=== PATIENT | male | born 1985 | race Caucasian/White ===

== ENCOUNTER 2018-04-21 14:44 | Inpatient (IN) | payer OTHER ==
[2018-04-21 16:41] VITALS: BMI 26.4
--- NOTE | 2018-04-21 19:33 | HP ---
CIWA Score - CIWA Score Nausea/Vomitin-No Nausea/No Vomiting Muscle Tremors: 2 Anxiety: 3 Agitation: 2 Paroxysmal Sweats: 3 Orientation: 1-Uncertain about Date (no distress) Tacttile Disturbances: 1-Very Mild Itch/Numbness Auditory Disturbances: 0-None Visual Disturbances: 0-None Headache: 0-None Present CIWA-Ar Total Score: 12 Admission ROS BHS - HPI Chief Complaint: benzo and alcohol withdrawal symptoms Allergies/Adverse Reactions: Allergies Allergy/AdvReac Type Severity Reaction Status Date / Time No Known Allergies Allergy Verified 04/21/18 16:56 History of Present Illness: 32 yo male with hx of nicotine, xanax, cocaine, heroin and alcohol dependence is here seeking detox for benzo and alcohol. MMTP : Aditya Rodriguez on methadone 65 mg, last medicated today, dose pending verification. Hx Hep C and anxiety. Denies suicidal / homicidal ideation or hx suicide attempt. Denies hx of blackouts, seizures or OD. Longest period of sobriety three months. Last detox six months ago at [facility]. Exam Limitations: No Limitations - Ebola screening Have you traveled outside of the country in the last 21 days: No (N) Have you had contact with anyone from an Ebola affected area: No Have you been sick,other than usual withdrawal symptoms: No Do you have a fever: No - Review of Systems Constitutional: Chills, Changes in sleep, Unintentional Wgt. Loss EENT: reports: Other (uses glasses) Respiratory: reports: No Symptoms reported Cardiac: reports: No Symptoms Reported GI: reports: Poor Fluid Intake : reports: No Symptoms Reported Musculoskeletal: reports: Back Pain, Other (bilateral foot pain "walking all day ") Integumentary: reports: No Symptoms Reported Neuro: reports: No Symptoms reported Endocrine: reports: Increased Thirst Hematology: reports: No Symptoms Reported Psychiatric: reports: Orientated x3, Anxious Other Systems: Reviewed and Negative Patient History - Patient Medical History Hx Anemia: No Hx Asthma: No Hx Chronic Obstructive Pulmonary Disease (COPD): No Hx Cancer: No Hx Cardiac Disorders: No Hx Congestive Heart Failure: No Hx Hypertension: No Hx Hypercholesterolemia: No Hx Pacemaker: No HX Cerebrovascular Accident: No Hx Seizures: No Hx Dementia: No Hx Diabetes: No Hx Gastrointestinal Disorders: Yes (Hx GERD) Hx Liver Disease: Yes (Hep C and treated ) Hx Genitourinary Disorders: No Hx Sexually Transmitted Disorders: No Hx Renal Disease (ESRD): No Hx Thyroid Disease: No Hx Human Immunodeficiency Virus (HIV): No (last tested three weeks ago, reports neg results ) Hx Hepatitis C: Yes (treated with Harv[place] ) Hx Depression: Yes Hx Suicide Attempt: No Hx Bipolar Disorder: No Hx Schizophrenia: No - Patient Surgical History Past Surgical History: No - PPD History Previous Implant?: Yes Documented Results: Negative w/o proof Implanted On Prior R Admission?: No PPD to be Administered?: Yes - Smoking Cessation Smoking history: Current every day smoker Have you smoked in the past 12 months: Yes Aproximately how many cigarettes per day: 10 Hx Chewing Tobacco Use: No Initiated information on smoking cessation: Yes 'Breaking Loose' booklet given: 04/21/18 - Substance & Tx. History Hx Alcohol Use: Yes Hx Substance Use: Yes Substance Use Type: Alcohol, Cocaine, Heroin, Tranquilizers Hx Substance Use Treatment: Yes ([facility] six months ago ) - Substances Abused Alprazolam (Xanax) Route: Oral Frequency: Daily Amount used: 10-20mg Age of first use: 14 Date of Last Use: 04/21/18 Cocaine Route: Injection Frequency: Daily Amount used: 8 bags Age of first use: 13 Date of Last Use: 04/20/18 Heroin Route: Injection Frequency: Daily Amount used: 10 bags Age of first use: 24 Date of Last Use: 04/20/18 Alcohol Route: Oral Frequency: Daily Amount used: 5 24 oz cans/ 1pint rum Age of first use: 13 Date of Last Use: 04/21/18 Family Disease History - Family Disease History Family History: Unable to Obtain Admission Physical Exam S - Vital Signs Vital Signs: Vital Signs - 24 hr 04/21/18 16:39 Temperature 97.8 F Pulse Rate 58 L Respiratory 18 Rate Blood Pressure 107/60 - Physical General Appearance: Yes: No Apparent Distress, Nourished, Appropriately Dressed , Irritable, Sweating HEENTM: Yes: EOMI, Hearing grossly Normal, Normal ENT Inspection, Normocephalic , Normal Voice, RADHA, Pharynx Normal, Tm's normal Respiratory: Yes: Chest Non-Tender, Lungs Clear, Normal Breath Sounds, No Respiratory Distress, No Accessory Muscle Use Neck: Yes: No masses,lesions,Nodules, Trachea in good position Breast: Yes: Breast Exam Deferred Cardiology: Yes: Regular Rhythm, Regular Rate Abdominal: Yes: Normal Bowel Sounds, Non Tender, Flat, Soft Genitourinary: Yes: Within Normal Limits Back: Yes: Normal Inspection Musculoskeletal: Yes: full range of Motion, Gait Steady, Pelvis Stable Extremities: Yes: Normal Capillary Refill, Normal Inspection, Normal Range of Motion, Non-Tender 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: 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: 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, Fully Oriented, Alert, Motor Strength 5/5, Normal Mood/Affect, Normal Response Integumentary: Yes: Normal Color, Warm, Diaphoresis Lymphatic: Yes: Within Normal Limits - Diagnostic (1) Nicotine dependence Current Visit: Yes Status: Acute Qualifiers: Nicotine product type: cigarettes (2) Cocaine dependence Current Visit: Yes Status: Acute Qualifiers: Substance use status: uncomplicated Qualified Code(s): F14.20 - Cocaine dependence, uncomplicated (3) Alcohol dependence with withdrawal Current Visit: Yes Status: Acute Qualifiers: Complication of substance-induced condition: uncomplicated Qualified Code(s ): F10.230 - Alcohol dependence with withdrawal, uncomplicated (4) Sedative, hypnotic or anxiolytic dependence with withdrawal, unspecified Current Visit: Yes Status: Acute (5) Opioid dependence on agonist therapy Current Visit: Yes Status: Acute Comment: MMTP : Aditya Rodriguez on methadone 65 mg, last medicated today, dose pending verification. Cleared for Admission [facility] - Detox or Rehab [facility] Level of Care: Medically Managed Detox Regimen/Protocol: Librium [facility] Breath Alcohol Content Breath Alcohol Content: 0 Urine Drug Screen - Results Drug Screen Negative: No Urine Drug Screen Results: MILDRED-Cocaine, OPI-Opiates, BZO-Benzodiazepines, MTD- Methadone
[2018-04-21] MEDS ORDERED: P-EPHED 60MG/TRIPROLIDI 2.5MG TABLET PO PRN (19:40)
[2018-04-21] MEDS ORDERED: MAGNESIUM CITRATE 300 ML BOTTLE PO PRN (19:40)
[2018-04-21] MEDS ORDERED: MAG HYDROX/AL HYDROX/SIMETH 30 ML UNIT-DOSE CUP PO PRN (19:40)
[2018-04-21] MEDS ORDERED: LOPERAMIDE HCL 2 MG CAPSULE PO PRN (19:40)
[2018-04-21] MEDS ORDERED: IBUPROFEN 400 MG TABLET (FP) PO PRN (19:40)
[2018-04-21] MEDS ORDERED: guaiFENesin/D-METHORPHAN HB 10 ML UNIT-DOSE CUPS PO PRN (19:40)
[2018-04-21] MEDS ORDERED: diazePAM 5 MG TABLET PO ONE (19:40)
[2018-04-21] MEDS ORDERED: NICOTINE POLACRILEX 2 MG GUM BC PRN (19:40)
[2018-04-21] MEDS ORDERED: MENTHOL/PHENOL 1 EACH UD MM PRN (19:40)
[2018-04-21] MEDS ORDERED: MAGNESIUM HYDROX 2400MG/30ML ORAL SUSPENSION 30 ML CUP PO PRN (19:40)
[2018-04-21] MEDS: diazePAM 5 MG TABLET PO SCH (23:10)
[2018-04-21] MEDS: THIAMINE HCL 100 MG TABLET (FP) PO SCH (23:10)
[2018-04-22 01:46] LABS: URINE APPEARANCE CLOUDY; URINE BILIRUBIN NEGATIVE (<2.0 mg/dL); URINE COLOR DKYELLOW; URINE GLUCOSE (UA) NEGATIVE (NEGATIVE); URINE KETONE NEGATIVE (NEGATIVE); URINE LEUK ESTERASE NEGATIVE (NEGATIVE); URINE NITRITE NEGATIVE (NEGATIVE); URINE PROTEIN NEGATIVE (NEGATIVE)
[2018-04-22] MEDS: diazePAM 5 MG TABLET PO SCH ×3 (06:13→21:59)
[2018-04-22] MEDS ORDERED: METHADONE HCL 10 MG TABLET PO ONE (08:22)
[2018-04-22] MEDS: diazePAM 5 MG TABLET PO PRN ×2 (08:29→17:30)
[2018-04-22] MEDS ORDERED: METHADONE 40 MG, METHADONE 20 MG, METHADONE 5 MG PO ONE (08:35)
[2018-04-22] MEDS ORDERED: METHADONE HCL 5 MG TABLET ONE (08:43)
[2018-04-22] MEDS ORDERED: METHADONE HCL 10 MG TABLET ONE (08:43)
[2018-04-22] MEDS ORDERED: METHADONE HCL 40 MG DISPERSABLE TABLET ONE (08:44)
[2018-04-22 10:06] LABS: HEMATOCRIT 38.3 % (35.4-49); MCH 30.2 pg (25.7-33.7); MEAN PLT VOLUME 8.8 fl (7.5-11.1); PLATELET COUNT 152 K/MM3 (134-434); RBC 4.31 M/mm3 (4.00-5.60); RDW 14.3 % (11.9-15.9)
[2018-04-22 10:18] LABS: CHLORIDE 105 mmol/L (98-107); POTASSIUM 4.5 mmol/L (3.5-5.1); SODIUM 142 mmol/L (136-145)
[2018-04-22] MEDS: NICOTINE 14 MG/24 HOURS TOPICAL PATCH TD SCH (10:19)
[2018-04-22] MEDS: PRENATAL VITAMINS W/ FOLIC ACID TABLET (FP) PO SCH (10:19)
[2018-04-22 10:39] LABS: ALBUMIN 3.4 g/dl (3.4-5.0); ALK PHOS 89 U/L (45-117); BILIRUBIN,TOTAL 0.3 mg/dL (0.2-1.0); BLOOD UREA NITROGEN 17 mg/dL (7-18); CALCIUM 8.5 mg/dL (8.5-10.1); CO2 31 mmol/L (21-32); GLUCOSE,RANDOM 74 mg/dL (74-106); SGOT/AST 13 U/L (15-37); SGPT/ALT 21 U/L (12-78); TOT PROT 6.2 g/dl (6.4-8.2)
--- NOTE | 2018-04-22 13:06 | PN ---
S CIWA - CIWA Score Nausea/Vomitin-No Nausea/No Vomiting Muscle Tremors: 3 Anxiety: 3 Agitation: 1-Slight > Activity Paroxysmal Sweats: 3 Orientation: 0-Oriented Tacttile Disturbances: 2-Mild Itch/Numbness/Burn Auditory Disturbances: 2-Mild Harshness/Frighten Visual Disturbances: 0-None Headache: 0-None Present CIWA-Ar Total Score: 14 BHS Progress Note (SOAP) Subjective: Anxious, Sweating, Tremors. Objective: PATIENT A & O X 2 (UNCERTAIN ABOUT CURRENT DAY / DATE). PATIENT OBSERVED AMBULATING ON UNIT. NO ACUTE DISTRESS. 04/22/18 13:07 Vital Signs Temperature 97.5 F L 04/22/18 10:29 Pulse Rate 75 04/22/18 10:29 Respiratory Rate 18 04/22/18 10:29 Blood Pressure 101/71 04/22/18 10:29 O2 Sat by Pulse Oximetry (%) Laboratory Tests 04/21/18 04/22/18 04/22/18 01:30 08:00 08:00 WBC 8.0 RBC 4.31 Hgb 13.0 Hct 38.3 MCV 89.0 MCH 30.2 MCHC 34.0 RDW 14.3 Plt Count 152 MPV 8.8 Sodium 142 Potassium 4.5 Chloride 105 Carbon Dioxide 31 Anion Gap No Result Required. BUN 17 Creatinine 1.0 Creat Clearance w eGFR > 60 Random Glucose 74 Calcium 8.5 Total Bilirubin 0.3 AST 13 L ALT 21 Alkaline Phosphatase 89 Total Protein 6.2 L Albumin 3.4 Urine Color Dkyellow Urine Appearance Cloudy Urine pH 5.0 Ur Specific [place] 1.018 Urine Protein Negative Urine Glucose (UA) Negative Urine Ketones Negative Urine Blood Negative Urine Nitrite Negative Urine Bilirubin Negative Urine Urobilinogen 2.0 Ur Leukocyte Esterase Negative RPR Titer 04/22/18 08:00 WBC RBC Hgb Hct MCV MCH MCHC RDW Plt Count MPV Sodium Potassium Chloride Carbon Dioxide Anion Gap BUN Creatinine Creat Clearance w eGFR Random Glucose Calcium Total Bilirubin AST ALT Alkaline Phosphatase Total Protein Albumin Urine Color Urine Appearance Urine pH Ur Specific [place] Urine Protein Urine Glucose (UA) Urine Ketones Urine Blood Urine Nitrite Urine Bilirubin Urine Urobilinogen Ur Leukocyte Esterase RPR Titer Nonreactive LABS NOTED. Assessment: 04/22/18 13:08 WITHDRAWAL SYMPTOMS. Plan: CONTINUE DETOX.
--- NOTE | 2018-04-22 14:15 | CONSULT ---
[facility] Psychiatric Consult - Data Date of interview: 04/22/18 Admission source: [facility] Identifying data: Patient is a 32 year old single male, without kids, unemployed , and currently homeless. This is patient's first admission to detox at [facility]. Pt admitted to for alcohol, cocaine and opiate dependence. Substance Abuse History: Smoking Cessation. Smoking history: Current every day smoker. Have you smoked in the past 12 months: Yes. Aproximately how many cigarettes per day: 10. Hx Chewing Tobacco Use: No. Initiated information on smoking cessation: Yes. 'Breaking Loose' booklet given: 04/21/18. - Substance & Tx. History. Hx Alcohol Use: Yes. Hx Substance Use: Yes. Substance Use Type : Alcohol, Cocaine, Heroin, Tranquilizers. Hx Substance Use Treatment: Yes ( [facility] six months ago ). - Substances Abused. Alprazolam (Xanax). Route : Oral. Frequency: Daily. Amount used: 10-20mg. Age of first use: 14. Date of Last Use: 04/21/18. Cocaine. Route: Injection. Frequency: Daily. Amount used: 8 bags. Age of first use: 13. Date of Last Use: 04/20/18. Heroin. Route: Injection. Frequency: Daily. Amount used: 10 bags. Age of first use: 24. Date of Last Use: 04/20/18. Alcohol. Route: Oral. Frequency: Daily. Amount used: 5 24 oz cans/ 1pint rum. Age of first use: 13. Date of Last Use: 04/21/18 Medical History: GERD, Hep C (treated) Psychiatric History: Pt. denies h/o psychiatric hospitalization, outpatient care , and suicide attempt. Pt. is enrolled at the [facility] methadone program. Pt. is on Methadone maintanence of 85mg daily. Physical/Sexual Abuse/Trauma History: Denies. Mental Status Exam - Mental Status Exam Alert and Oriented to: Time, Place, Person Cognitive Function: Good Patient Appearance: Well Groomed Mood: Withdrawn Affect: Mood Congruent Patient Behavior: Fatigued, Guarded Speech Pattern: Slurred (Pt. presents as a fatigued and sleepy) Voice Loudness: Moderately Soft/Quiet Thought Process: Goal Oriented Thought Disorder: Not Present Hallucinations: Denies Suicidal Ideation: Denies Homicidal Ideation: Denies Insight/Judgement: Poor Sleep: Fair Appetite: Fair Muscle strength/Tone: Normal Gait/Station: Other (Did not observe patient's gait.) Psychiatric Findings - Problem List ([place] 1, 2,3) (1) Substance induced mood disorder Current Visit: Yes Status: Acute (2) Alcohol dependence with withdrawal Current Visit: Yes Status: Acute Qualifiers: Complication of substance-induced condition: uncomplicated Qualified Code(s ): F10.230 - Alcohol dependence with withdrawal, uncomplicated (3) Cocaine dependence Current Visit: Yes Status: Acute Qualifiers: Substance use status: uncomplicated Qualified Code(s): F14.20 - Cocaine dependence, uncomplicated (4) Nicotine dependence Current Visit: Yes Status: Acute Qualifiers: Nicotine product type: cigarettes Substance use status: uncomplicated Qualified Code(s): F17.210 - Nicotine dependence, cigarettes, uncomplicated (5) Sedative, hypnotic or anxiolytic dependence with withdrawal, unspecified Current Visit: Yes Status: Acute (6) Opioid dependence on agonist therapy Current Visit: Yes Status: Chronic Comment: MMTP : Aditya Rodriguez on methadone 65 mg, last medicated today, dose pending verification. - Initial Treatment Plan Initial Treatment Plan: Psychoeducation provided. Detoxification in progress. Observation.
--- NOTE | 2018-04-22 14:33 | EKG ---
Test Reason : Blood Pressure : / mmHG Vent. Rate : 046 BPM Atrial Rate : 046 BPM P-R Int : 144 ms QRS Dur : 108 ms QT Int : 450 ms P-R-T Axes : 012 047 061 degrees QTc Int : 393 ms SINUS BRADYCARDIA OTHERWISE NORMAL ECG WHEN COMPARED WITH ECG OF 21-APR-2018 20:39, SINUS RHYTHM HAS REPLACED JUNCTIONAL RHYTHM Confirmed by ROMEL CHUNG MD ([id number]) on 04/22/2018 2:32:46 PM Referred By: Confirmed By:ROMEL CHUNG MD
--- NOTE | 2018-04-22 14:35 | EKG ---
Test Reason : Blood Pressure : / mmHG Vent. Rate : 046 BPM Atrial Rate : 046 BPM P-R Int : 000 ms QRS Dur : 114 ms QT Int : 490 ms P-R-T Axes : 000 041 051 degrees QTc Int : 428 ms POOR DATA QUALITY, INTERPRETATION MAY BE ADVERSELY AFFECTED MARKED SINUS BRADYCARDIA INCOMPLETE RIGHT BUNDLE BRANCH BLOCK ABNORMAL ECG NO PREVIOUS ECGS AVAILABLE Confirmed by ROMEL CHUNG MD ([id number]) on 04/22/2018 2:35:23 PM Referred By: Confirmed By:ROMEL CHUNG MD
[2018-04-22] MEDS: ACETAMINOPHEN 325 MG TABLET (FP) PO PRN (20:00)
--- NOTE | 2018-04-22 21:35 | PN ---
[facility] Progress Note Note: Vital Signs - 24 hr 04/22/18 04/22/18 04/22/18 00:23 03:30 05:56 Temperature 98.4 F Pulse Rate 57 L Respiratory 18 18 18 Rate Blood Pressure 108/57 04/22/18 04/22/18 04/22/18 06:30 09:19 09:35 Temperature 97.5 F L 97.5 F L Pulse Rate 75 75 Respiratory 18 18 18 Rate Blood Pressure 101/71 101/71 04/22/18 04/22/18 04/22/18 10:29 13:08 18:37 Temperature 97.5 F L 98.4 F 96.9 F L Pulse Rate 75 60 71 Respiratory 18 16 18 Rate Blood Pressure 101/71 94/58 120/86 04/22/18 21:45 Temperature 102.1 F H Pulse Rate 58 L Respiratory 18 Rate Blood Pressure 111/72 Patient c/o of sore throat and fever A/P Patient AOx3 + pharyngeal erythema, no exudate present no adenopathy no adventitious breath sounds - sore throat Plan: tylenol PRN for fever throat culture peridex rinse BID increase fluids continue to monitor
[2018-04-22] MEDS: THIAMINE HCL 100 MG TABLET (FP) PO SCH (21:58)
[2018-04-22] MEDS: CHLORHEXIDINE GLUCONATE 0.12% 15ML CUP MM SCH (21:59)
[2018-04-23] MEDS ORDERED: METHADONE HCL 5 MG TABLET ONE (04:07)
[2018-04-23] MEDS ORDERED: METHADONE HCL 10 MG TABLET ONE (04:07)
[2018-04-23] MEDS ORDERED: METHADONE HCL 40 MG DISPERSABLE TABLET ONE (04:08)
[2018-04-23] MEDS ORDERED: METHADONE HCL 10 MG TABLET PO SCH (06:00)
[2018-04-23] MEDS: METHADONE 40 MG, METHADONE 20 MG, METHADONE 5 MG PO SCH (06:26)
[2018-04-23] MEDS: PRENATAL VITAMINS W/ FOLIC ACID TABLET (FP) PO SCH (10:05)
[2018-04-23] MEDS: diazePAM 5 MG TABLET PO SCH ×2 (10:05→22:22)
[2018-04-23] MEDS: NICOTINE 14 MG/24 HOURS TOPICAL PATCH TD SCH (10:06)
[2018-04-23] MEDS: CHLORHEXIDINE GLUCONATE 0.12% 15ML CUP MM SCH ×2 (10:08→22:27)
--- NOTE | 2018-04-23 12:07 | PN ---
[facility] CIWA - CIWA Score Nausea/Vomitin-No Nausea/No Vomiting Muscle Tremors: None Anxiety: 4-Mod. Anxious/Guarded Agitation: 3 Paroxysmal Sweats: 2 Orientation: 0-Oriented Tacttile Disturbances: 2-Mild Itch/Numbness/Burn Auditory Disturbances: 0-None Visual Disturbances: 0-None Headache: 0-None Present CIWA-Ar Total Score: 11 BHS Progress Note (SOAP) Subjective: Anxious, Interrupted Sleep, Sweating. Objective: PATIENT A & O X 3, OBSERVED AMBULATING ON UNIT. NO ACUTE DISTRESS. 04/23/18 12:09 Vital Signs Temperature 97.1 F L 04/23/18 09:17 Pulse Rate 76 04/23/18 09:17 Respiratory Rate 17 04/23/18 09:17 Blood Pressure 94/54 04/23/18 09:17 O2 Sat by Pulse Oximetry (%) Laboratory Tests 04/21/18 04/22/18 04/22/18 01:30 08:00 08:00 WBC 8.0 RBC 4.31 Hgb 13.0 Hct 38.3 MCV 89.0 MCH 30.2 MCHC 34.0 RDW 14.3 Plt Count 152 MPV 8.8 Sodium 142 Potassium 4.5 Chloride 105 Carbon Dioxide 31 Anion Gap No Result Required. BUN 17 Creatinine 1.0 Creat Clearance w eGFR > 60 Random Glucose 74 Calcium 8.5 Total Bilirubin 0.3 AST 13 L ALT 21 Alkaline Phosphatase 89 Total Protein 6.2 L Albumin 3.4 Urine Color Dkyellow Urine Appearance Cloudy Urine pH 5.0 Ur Specific [place] 1.018 Urine Protein Negative Urine Glucose (UA) Negative Urine Ketones Negative Urine Blood Negative Urine Nitrite Negative Urine Bilirubin Negative Urine Urobilinogen 2.0 Ur Leukocyte Esterase Negative RPR Titer 04/22/18 08:00 WBC RBC Hgb Hct MCV MCH MCHC RDW Plt Count MPV Sodium Potassium Chloride Carbon Dioxide Anion Gap BUN Creatinine Creat Clearance w eGFR Random Glucose Calcium Total Bilirubin AST ALT Alkaline Phosphatase Total Protein Albumin Urine Color Urine Appearance Urine pH Ur Specific [place] Urine Protein Urine Glucose (UA) Urine Ketones Urine Blood Urine Nitrite Urine Bilirubin Urine Urobilinogen Ur Leukocyte Esterase RPR Titer Nonreactive LABS NOTED. Assessment: 04/23/18 12:09 WITHDRAWAL SYMPTOMS. Plan: CONTINUE DETOX. INCREASE DAILY PO FLUID INTAKE.
[2018-04-23] MEDS: diazePAM 5 MG TABLET PO PRN (15:41)
[2018-04-23] MEDS: ACETAMINOPHEN 325 MG TABLET (FP) PO PRN (15:41)
[2018-04-23] MEDS: THIAMINE HCL 100 MG TABLET (FP) PO SCH (22:22)
[2018-04-23] MEDS: MELATONIN 5 MG TABLETS PO PRN (22:23)
[2018-04-24] MEDS ORDERED: METHADONE HCL 10 MG TABLET ONE (04:25)
[2018-04-24] MEDS ORDERED: METHADONE HCL 5 MG TABLET ONE (04:26)
[2018-04-24] MEDS ORDERED: METHADONE HCL 40 MG DISPERSABLE TABLET ONE (04:26)
[2018-04-24] MEDS: METHADONE 40 MG, METHADONE 20 MG, METHADONE 5 MG PO SCH (05:47)
[2018-04-24] MEDS: PRENATAL VITAMINS W/ FOLIC ACID TABLET (FP) PO SCH (10:06)
[2018-04-24] MEDS: NICOTINE 14 MG/24 HOURS TOPICAL PATCH TD SCH (10:07)
[2018-04-24] MEDS: diazePAM 5 MG TABLET PO SCH ×2 (10:07→22:52)
[2018-04-24] MEDS: CHLORHEXIDINE GLUCONATE 0.12% 15ML CUP MM SCH ×2 (10:07→22:52)
--- NOTE | 2018-04-24 17:56 | PN ---
[facility] Progress Note (SOAP) Subjective: Anxious, Sweating, Fatigue. Objective: PATIENT A & O X 3, OBSERVED AMBULATING ON UNIT. NO ACUTE DISTRESS. 04/24/18 17:56 Vital Signs Temperature 97.6 F 04/24/18 14:36 Pulse Rate 51 L 04/24/18 14:36 Respiratory Rate 19 04/24/18 14:36 Blood Pressure 99/61 04/24/18 14:36 O2 Sat by Pulse Oximetry (%) Laboratory Tests 04/21/18 04/22/18 04/22/18 01:30 08:00 08:00 WBC 8.0 RBC 4.31 Hgb 13.0 Hct 38.3 MCV 89.0 MCH 30.2 MCHC 34.0 RDW 14.3 Plt Count 152 MPV 8.8 Sodium 142 Potassium 4.5 Chloride 105 Carbon Dioxide 31 Anion Gap No Result Required. BUN 17 Creatinine 1.0 Creat Clearance w eGFR > 60 Random Glucose 74 Calcium 8.5 Total Bilirubin 0.3 AST 13 L ALT 21 Alkaline Phosphatase 89 Total Protein 6.2 L Albumin 3.4 Urine Color Dkyellow Urine Appearance Cloudy Urine pH 5.0 Ur Specific [place] 1.018 Urine Protein Negative Urine Glucose (UA) Negative Urine Ketones Negative Urine Blood Negative Urine Nitrite Negative Urine Bilirubin Negative Urine Urobilinogen 2.0 Ur Leukocyte Esterase Negative RPR Titer 04/22/18 08:00 WBC RBC Hgb Hct MCV MCH MCHC RDW Plt Count MPV Sodium Potassium Chloride Carbon Dioxide Anion Gap BUN Creatinine Creat Clearance w eGFR Random Glucose Calcium Total Bilirubin AST ALT Alkaline Phosphatase Total Protein Albumin Urine Color Urine Appearance Urine pH Ur Specific [place] Urine Protein Urine Glucose (UA) Urine Ketones Urine Blood Urine Nitrite Urine Bilirubin Urine Urobilinogen Ur Leukocyte Esterase RPR Titer Nonreactive LABS NOTED. Assessment: 04/24/18 17:56 WITHDRAWAL SYMPTOMS. Plan: CONTINUE DETOX. INCREASE DAILY PO FLUID INTAKE.
[2018-04-24] MEDS: THIAMINE HCL 100 MG TABLET (FP) PO SCH (22:52)
[2018-04-24] MEDS: MELATONIN 5 MG TABLETS PO PRN (23:43)
[2018-04-25] MEDS ORDERED: METHADONE HCL 5 MG TABLET ONE ×2 (05:03→09:19)
[2018-04-25] MEDS ORDERED: METHADONE HCL 10 MG TABLET ONE ×2 (05:03→09:19)
[2018-04-25] MEDS ORDERED: METHADONE HCL 40 MG DISPERSABLE TABLET ONE ×2 (05:04→09:19)
[2018-04-25] MEDS: METHADONE 40 MG, METHADONE 20 MG, METHADONE 5 MG PO SCH (06:56)
[2018-04-25] MEDS ORDERED: METHADONE HCL 10 MG TABLET PO ONE (09:06)
[2018-04-25 09:09] VITALS: BP 103/61; PULSE 40; TEMP 97.4
[2018-04-25] MEDS ORDERED: METHADONE 40 MG, METHADONE 20 MG, METHADONE 5 MG PO ONE (09:15)
[2018-04-25] MEDS ORDERED: diazePAM 5 MG TABLET PO SCH (10:00)
[2018-04-25] MEDS: PRENATAL VITAMINS W/ FOLIC ACID TABLET (FP) PO SCH (10:28)
[2018-04-25] MEDS: NICOTINE 14 MG/24 HOURS TOPICAL PATCH TD SCH (10:28)
[2018-04-25] MEDS: CHLORHEXIDINE GLUCONATE 0.12% 15ML CUP MM SCH (10:28)
--- NOTE | 2018-04-25 15:03 | PN ---
[facility] Progress Note (SOAP) Subjective: pt states he is leaving today- says sore throat is better- but cx came back positive Objective: 04/25/18 15:01 Vital Signs - 24 hr 04/24/18 04/24/18 04/25/18 18:20 22:33 03:30 Temperature 97.9 F 98.5 F Pulse Rate 41 L 48 L Respiratory 16 18 18 Rate Blood Pressure 89/52 92/59 04/25/18 04/25/18 07:36 09:08 Temperature 97.5 F L 97.4 F L Pulse Rate 59 L 40 L Respiratory 18 18 Rate Blood Pressure 92/41 103/61 Laboratory Tests 04/21/18 04/22/18 04/22/18 01:30 08:00 08:00 WBC 8.0 RBC 4.31 Hgb 13.0 Hct 38.3 MCV 89.0 MCH 30.2 MCHC 34.0 RDW 14.3 Plt Count 152 MPV 8.8 Sodium 142 Potassium 4.5 Chloride 105 Carbon Dioxide 31 Anion Gap No Result Required. BUN 17 Creatinine 1.0 Creat Clearance w eGFR > 60 Random Glucose 74 Calcium 8.5 Total Bilirubin 0.3 AST 13 L ALT 21 Alkaline Phosphatase 89 Total Protein 6.2 L Albumin 3.4 Urine Color Dkyellow Urine Appearance Cloudy Urine pH 5.0 Ur Specific [place] 1.018 Urine Protein Negative Urine Glucose (UA) Negative Urine Ketones Negative Urine Blood Negative Urine Nitrite Negative Urine Bilirubin Negative Urine Urobilinogen 2.0 Ur Leukocyte Esterase Negative RPR Titer 04/22/18 08:00 WBC RBC Hgb Hct MCV MCH MCHC RDW Plt Count MPV Sodium Potassium Chloride Carbon Dioxide Anion Gap BUN Creatinine Creat Clearance w eGFR Random Glucose Calcium Total Bilirubin AST ALT Alkaline Phosphatase Total Protein Albumin Urine Color Urine Appearance Urine pH Ur Specific [place] Urine Protein Urine Glucose (UA) Urine Ketones Urine Blood Urine Nitrite Urine Bilirubin Urine Urobilinogen Ur Leukocyte Esterase RPR Titer Nonreactive Microbiology 04/23/18 15:00 Throat Throat Culture - Preliminary Streptococcus Pyogenes Grp A pt states his sore throat is better- no fever Assessment: 04/25/18 15:02 32 yo male with hx of nicotine, xanax, cocaine, heroin and alcohol dependence- completed detox for benzo and alcohol Plan: continue methadone OTP- treamtent for positive cx
--- NOTE | 2018-04-25 15:23 | DS ---
[facility] Detox Discharge Summary Admission Date: 04/21/18 Discharge Date: 04/25/18 - History Present History: Alcohol Dependence, Opioid Dependence, MMTP Pertinent Past History: 32 yo male with hx of nicotine, xanax, cocaine, heroin and alcohol dependence- completed detox for benzo and alcohol. 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 - Physical Exam Results Vital Signs: Vital Signs Temperature 97.4 F L 04/25/18 09:08 Pulse Rate 40 L 04/25/18 09:08 Respiratory Rate 04/25/18 09:08 Blood Pressure 103/61 04/25/18 09:08 O2 Sat by Pulse Oximetry (%) - Treatment Hospital Course: Detox Protocol Followed, Detoxed Safely, Responded well, Discharged Condition Good - Medication Discharge Medications: Ambulatory Orders Omeprazole Magnesium [Prilosec Otc] 20 mg PO DAILY 04/21/18 traZODone HCL [Desyrel -] 100 mg PO HS 04/21/18 Amoxicillin - [Amoxicillin 500mg Capsule -] 500 mg PO BID #20 capsule 04/25/18 - Diagnosis (1) Streptococcal pharyngitis Status: Acute (2) Alcohol dependence with withdrawal Status: Acute Qualifiers: Complication of substance-induced condition: uncomplicated Qualified Code(s ): F10.230 - Alcohol dependence with withdrawal, uncomplicated (3) Cocaine dependence Status: Acute Qualifiers: Substance use status: uncomplicated Qualified Code(s): F14.20 - Cocaine dependence, uncomplicated (4) Nicotine dependence Status: Acute Qualifiers: Nicotine product type: cigarettes Substance use status: uncomplicated Qualified Code(s): F17.210 - Nicotine dependence, cigarettes, uncomplicated (5) Opioid dependence on agonist therapy Status: Chronic - AMA Did Patient Leave Against Medical Advice: No
== END 2018-04-25 12:06 | disposition other institution (70) | DRG 773 ==
LOC: YASAS 14:44 → Y3N 18:25
PROVIDERS: ADMIT Surgery; ATTEND Surgery
PROC: HZ2ZZZZ Detoxification Services for Substance Abuse Treatment (ICD-10-PCS; principal; 2018-04-21)
DX: F10.230 Alcohol dependence with withdrawal, uncomplicated (principal); F13.230 Sedative, hypnotic or anxiolytic dependence with withdrawal, uncomplicated; F11.20 Opioid dependence, uncomplicated; F14.20 Cocaine dependence, uncomplicated; F17.210 Nicotine dependence, cigarettes, uncomplicated; F19.24 Other psychoactive substance dependence with psychoactive substance-induced mood disorder; J02.0 Streptococcal pharyngitis; B95.0 Streptococcus, group A, as the cause of diseases classified elsewhere; Z86.19 Personal history of other infectious and parasitic diseases; Z87.19 Personal history of other diseases of the digestive system; Z59.0 Homelessness
CPT/HCPCS: 36415; 80053; 81003; 85027; 86593; 87070; 87077; 93005; 93010

== ENCOUNTER 2018-04-25 12:42 | Inpatient (IN) | payer OTHER ==
[2018-04-25 13:11] VITALS: BMI 24.3
--- NOTE | 2018-04-25 13:41 | HP ---
[facility] Rehab Assess/Revision - Admission History Admitted to Rehab from: [facility] Date of Admission to Rehab: 04/25/18 - Vital signs Vital Signs: Vital Signs Period Temp Pulse Resp BP Sys/[place] Pulse Ox Last 24 Hr 97.9 F 56 18 111/70 - Findings Detox History & Physical reviewed: Yes Concur with findings: Yes Inpatient Rehab Admission - Initial Determination Are CD services needed?: Yes Free of communicable disease: Yes Not in need of hospitalization: Yes - Rehab Admission Criteria Previous failed treatment: Yes Poor recovery environment: Yes Comorbidities: Yes Lacks judgement: Yes Patient is meeting Inpatient Rehab admission criteria:: Yes
[2018-04-25] MEDS ORDERED: MAGNESIUM CITRATE 300 ML BOTTLE PO PRN (13:42)
[2018-04-25] MEDS ORDERED: hydrOXYzine PAMOATE 50 MG CAPSULE (FP) PO PRN (13:42)
[2018-04-25] MEDS ORDERED: ACETAMINOPHEN 325 MG TABLET (FP) PO PRN (13:42)
[2018-04-25] MEDS ORDERED: NICOTINE POLACRILEX 2 MG GUM BUC PRN (13:42)
[2018-04-25] MEDS ORDERED: P-EPHED 60MG/TRIPROLIDI 2.5MG TABLET PO PRN (13:42)
[2018-04-25] MEDS ORDERED: LOPERAMIDE HCL 2 MG CAPSULE PO PRN (13:42)
[2018-04-25] MEDS ORDERED: MENTHOL/PHENOL 1 EACH UD MM PRN (13:42)
[2018-04-25] MEDS ORDERED: guaiFENesin/D-METHORPHAN HB 10 ML UNIT-DOSE CUPS PO PRN (13:42)
[2018-04-25] MEDS ORDERED: MAGNESIUM HYDROX 2400MG/30ML ORAL SUSPENSION 30 ML CUP PO PRN (13:42)
--- NOTE | 2018-04-25 13:54 | PN ---
[facility] Progress Note Note: Vital Signs Temperature 97.9 F 04/25/18 13:00 Pulse Rate 56 L 04/25/18 13:00 Respiratory Rate 18 04/25/18 13:00 Blood Pressure 111/70 04/25/18 13:00 O2 Sat by Pulse Oximetry (%) microbiology: mod Strep A preliminary results Patient symptomatic will start Penicillin V 250mg QID, treatment will be adjusted accordingly peridex PRN increase fluids continue to monitor
[2018-04-25] MEDS: PENICILLIN V POTASSIUM 500 MG TABLET PO SCH ×2 (17:28→23:00)
[2018-04-25] MEDS ORDERED: PT OWN MED DRAWER 7, Y5N ONE (20:38)
[2018-04-25] MEDS: CHLORHEXIDINE GLUCONATE 0.12% 15ML CUP MM SCH (22:08)
[2018-04-25] MEDS: THIAMINE HCL 100 MG TABLET (FP) PO SCH (22:08)
[2018-04-25] MEDS: MELATONIN 5 MG TABLETS PO PRN (23:00)
[2018-04-26] MEDS: PENICILLIN V POTASSIUM 500 MG TABLET PO SCH ×3 (06:24→18:00)
--- NOTE | 2018-04-26 06:57 | HP ---
Psychiatrist Admission - Data Date of interview: 04/26/18 Admission source: [facility] Identifying data: This is the first [facility] admission for this 32 years old single male, unemployed with no source of income, homeless Medical History: Significant for GERD and history of treatment for hepatitis C. Patient is on methadone 85 mg/day. Smokes 10 cigarettes daily Psychiatric History: Denies history of previous psychiatric treatment. However, reports feeling depressed and sleeping poorly. Requests to be orderred Trazadone to which he responded well in the past Physical/Sexual Abuse/Trauma History: Denies history of emotional, physical or sexual abuse as well as DV relationship. No service Additional Comment: Reports history of 6 previous misdemeanor arrests. Reports having an active court case on charges of possession of narcotic. Told caption writer that he is scheduled to appear in court on Jun 08. Vital Signs: Vital Signs - 24 hr 04/25/18 04/26/18 04/26/18 13:00 00:30 06:48 Temperature 97.9 F 97.8 F Pulse Rate 56 L 52 L Respiratory 18 16 16 Rate Blood Pressure 111/70 117/59 Allergies/Adverse Reactions: Allergies Allergy/AdvReac Type Severity Reaction Status Date / Time No Known Allergies Allergy Verified 04/25/18 12:57 Date of last physical exam: 04/21/18 Concur with the findings of this exam: Yes - Substance Abuse/Tx History Hx Alcohol Use: Yes Hx Substance Use: Yes (Currently attends [facility]) Substance Use Type: Alcohol (Started drining alcohol at age 13, consumes one pint of rum & 5x 24oz of beer daily. Last drank on 04/21/18), Cocaine (Started using cocaine at age13, consumes 8 bags daily. Last used on 04/20/18), Heroin ( Started using heroin at age 24, consumes 10 bags daily. Last used on 04/20/18), Tranquilizers (Started using xanax at age 14, consumes 10-20 mg daily. Last used on 04/21/18) Hx Substance Use Treatment: Yes (Multiple inpt detox & 5 inpt rehab admissions) Mental Status Exam - Mental Status Exam Alert and Oriented to: Time, Place, Person Cognitive Function: Fair Patient Appearance: Well Groomed Mood: Depressed Affect: Appropriate Patient Behavior: Cooperative Speech Pattern: Clear Voice Loudness: Normal Thought Process: Intact, Goal Oriented Hallucinations: Denies Suicidal Ideation: Denies Homicidal Ideation: Denies Insight/Judgement: Fair Sleep: Poorly Appetite: Fair Muscle strength/Tone: Normal Gait/Station: Normal Psychiatric Findings - Problem List ([place] 1, 2,3) (1) Alcohol dependence Current Visit: Yes Status: Acute (2) Cocaine dependence Current Visit: No Status: Acute Qualifiers: Substance use status: uncomplicated Qualified Code(s): F14.20 - Cocaine dependence, uncomplicated (3) Sedative hypnotic or anxiolytic dependence Current Visit: Yes Status: Acute (4) Opioid dependence on agonist therapy Current Visit: No Status: Chronic Comment: MMTP : Aditya Rodriguez on methadone 65 mg, last medicated today, dose pending verification. (5) Nicotine dependence Current Visit: No Status: Chronic Qualifiers: Nicotine product type: cigarettes Substance use status: uncomplicated Qualified Code(s): F17.210 - Nicotine dependence, cigarettes, uncomplicated (6) Substance induced mood disorder Current Visit: Yes Status: Acute (7) Substance-induced sleep disorder Current Visit: Yes Status: Acute (8) GERD (gastroesophageal reflux disease) Current Visit: Yes Status: Chronic (9) Hepatitis C Current Visit: Yes Status: Resolved - Initial Treatment Plan Initial Treatment Plan: 1) Start Trazadone 100 mg po HS. 2) monitor progress
[2018-04-26] MEDS ORDERED: METHADONE HCL 10 MG TABLET PO SCH (07:45)
[2018-04-26] MEDS: METHADONE 40 MG, METHADONE 20 MG, METHADONE 5 MG PO SCH (08:05)
[2018-04-26] MEDS ORDERED: METHADONE HCL 40 MG DISPERSABLE TABLET ONE (09:04)
[2018-04-26] MEDS ORDERED: METHADONE HCL 10 MG TABLET ONE (09:04)
[2018-04-26] MEDS: PANTOPRAZOLE 20 MG TABLET (FP) PO SCH (09:05)
[2018-04-26] MEDS ORDERED: METHADONE HCL 5 MG TABLET ONE (09:05)
[2018-04-26] MEDS: PRENATAL VITAMINS W/ FOLIC ACID TABLET (FP) PO SCH (09:05)
[2018-04-26] MEDS: NICOTINE 14 MG/24 HOURS TOPICAL PATCH TD SCH (09:06)
[2018-04-26] MEDS: CHLORHEXIDINE GLUCONATE 0.12% 15ML CUP MM SCH ×2 (10:26→22:01)
[2018-04-26] MEDS: MELATONIN 5 MG TABLETS PO PRN (22:00)
[2018-04-26] MEDS: THIAMINE HCL 100 MG TABLET (FP) PO SCH (22:00)
[2018-04-26] MEDS: traZODone HCL 100 MG TABLET (FP) PO SCH (22:00)
[2018-04-27] MEDS ORDERED: METHADONE HCL 5 MG TABLET ONE (03:03)
[2018-04-27] MEDS ORDERED: METHADONE HCL 10 MG TABLET ONE (03:03)
[2018-04-27] MEDS ORDERED: METHADONE HCL 40 MG DISPERSABLE TABLET ONE (03:03)
[2018-04-27] MEDS: PENICILLIN V POTASSIUM 500 MG TABLET PO SCH ×4 (03:29→17:58)
[2018-04-27] MEDS: METHADONE 40 MG, METHADONE 20 MG, METHADONE 5 MG PO SCH (06:44)
[2018-04-27] MEDS: NICOTINE 14 MG/24 HOURS TOPICAL PATCH TD SCH (10:49)
[2018-04-27] MEDS: CHLORHEXIDINE GLUCONATE 0.12% 15ML CUP MM SCH ×2 (10:49→21:48)
[2018-04-27] MEDS: PRENATAL VITAMINS W/ FOLIC ACID TABLET (FP) PO SCH (10:49)
[2018-04-27] MEDS: PANTOPRAZOLE 20 MG TABLET (FP) PO SCH (10:49)
[2018-04-27] MEDS: THIAMINE HCL 100 MG TABLET (FP) PO SCH (21:47)
[2018-04-27] MEDS: MELATONIN 5 MG TABLETS PO PRN (21:47)
[2018-04-27] MEDS: traZODone HCL 100 MG TABLET (FP) PO SCH (21:47)
[2018-04-28] MEDS: PENICILLIN V POTASSIUM 500 MG TABLET PO SCH ×4 (01:09→18:00)
[2018-04-28] MEDS ORDERED: METHADONE HCL 10 MG TABLET ONE (02:48)
[2018-04-28] MEDS ORDERED: METHADONE HCL 40 MG DISPERSABLE TABLET ONE (02:48)
[2018-04-28] MEDS ORDERED: METHADONE HCL 5 MG TABLET ONE (02:49)
[2018-04-28] MEDS ORDERED: PT OWN MED DRAWER 7, Y5N ONE ×3 (06:19→10:29)
[2018-04-28] MEDS: METHADONE 40 MG, METHADONE 20 MG, METHADONE 5 MG PO SCH (06:19)
[2018-04-28] MEDS ORDERED: ACETAMINOPHEN 325 MG TABLET (FP) ONE (10:16)
[2018-04-28] MEDS: CHLORHEXIDINE GLUCONATE 0.12% 15ML CUP MM SCH ×2 (10:18→21:39)
[2018-04-28] MEDS: PANTOPRAZOLE 20 MG TABLET (FP) PO SCH (10:18)
[2018-04-28] MEDS: PRENATAL VITAMINS W/ FOLIC ACID TABLET (FP) PO SCH (10:18)
[2018-04-28] MEDS: NICOTINE 14 MG/24 HOURS TOPICAL PATCH TD SCH (10:18)
[2018-04-28] MEDS: traZODone HCL 100 MG TABLET (FP) PO SCH (21:38)
[2018-04-28] MEDS: THIAMINE HCL 100 MG TABLET (FP) PO SCH (21:38)
[2018-04-28] MEDS: MELATONIN 5 MG TABLETS PO PRN (21:38)
[2018-04-29] MEDS ORDERED: METHADONE HCL 5 MG TABLET ONE (02:38)
[2018-04-29] MEDS ORDERED: METHADONE HCL 10 MG TABLET ONE (02:38)
[2018-04-29] MEDS ORDERED: METHADONE HCL 40 MG DISPERSABLE TABLET ONE (02:38)
[2018-04-29] MEDS: METHADONE 40 MG, METHADONE 20 MG, METHADONE 5 MG PO SCH (06:14)
[2018-04-29] MEDS: CHLORHEXIDINE GLUCONATE 0.12% 15ML CUP MM SCH ×2 (10:07→21:43)
[2018-04-29] MEDS: PANTOPRAZOLE 20 MG TABLET (FP) PO SCH (10:07)
[2018-04-29] MEDS: PRENATAL VITAMINS W/ FOLIC ACID TABLET (FP) PO SCH (10:07)
[2018-04-29] MEDS: NICOTINE 14 MG/24 HOURS TOPICAL PATCH TD SCH (10:07)
--- NOTE | 2018-04-29 10:57 | PN ---
[facility] Progress Note Note: c/o of headache, anxiety and difficulty sleeping, denies visual changes, vertigo or paresthesia, or neck pain Vital Signs Temperature 98.2 F 04/29/18 06:56 Pulse Rate 51 L 04/29/18 06:56 Respiratory Rate 18 04/29/18 06:56 Blood Pressure 93/56 04/29/18 06:56 O2 Sat by Pulse Oximetry (%) AOx3 no distress, anxious skin intact full ROM ambulating in the unit Plan: ibuprofen PRN for headache follow up with psych re: Anxiety increase fluids continue to monitor
[2018-04-29] MEDS: THIAMINE HCL 100 MG TABLET (FP) PO SCH (21:43)
[2018-04-29] MEDS: traZODone HCL 100 MG TABLET (FP) PO SCH (21:43)
[2018-04-29] MEDS: MELATONIN 5 MG TABLETS PO PRN (21:43)
[2018-04-30] MEDS ORDERED: METHADONE HCL 10 MG TABLET ONE (03:57)
[2018-04-30] MEDS ORDERED: METHADONE HCL 40 MG DISPERSABLE TABLET ONE (03:57)
[2018-04-30] MEDS ORDERED: METHADONE HCL 5 MG TABLET ONE (03:57)
[2018-04-30] MEDS: METHADONE 40 MG, METHADONE 20 MG, METHADONE 5 MG PO SCH (06:28)
[2018-04-30] MEDS: CHLORHEXIDINE GLUCONATE 0.12% 15ML CUP MM SCH ×2 (10:01→21:44)
[2018-04-30] MEDS: NICOTINE 14 MG/24 HOURS TOPICAL PATCH TD SCH (10:01)
[2018-04-30] MEDS: PRENATAL VITAMINS W/ FOLIC ACID TABLET (FP) PO SCH (10:02)
[2018-04-30] MEDS: PANTOPRAZOLE 20 MG TABLET (FP) PO SCH (10:02)
[2018-04-30] MEDS ORDERED: PT OWN MED DRAWER 7, Y5N ONE ×2 (18:54→20:09)
[2018-04-30] MEDS: THIAMINE HCL 100 MG TABLET (FP) PO SCH (21:43)
[2018-04-30] MEDS: traZODone HCL 100 MG TABLET (FP) PO SCH (21:43)
[2018-05-01] MEDS ORDERED: METHADONE HCL 40 MG DISPERSABLE TABLET ONE (04:38)
[2018-05-01] MEDS ORDERED: METHADONE HCL 10 MG TABLET ONE (04:38)
[2018-05-01] MEDS ORDERED: METHADONE HCL 5 MG TABLET ONE (04:39)
[2018-05-01] MEDS: METHADONE 40 MG, METHADONE 20 MG, METHADONE 5 MG PO SCH (06:21)
[2018-05-01] MEDS: PANTOPRAZOLE 20 MG TABLET (FP) PO SCH (10:24)
[2018-05-01] MEDS: PRENATAL VITAMINS W/ FOLIC ACID TABLET (FP) PO SCH (10:24)
[2018-05-01] MEDS: NICOTINE 14 MG/24 HOURS TOPICAL PATCH TD SCH (10:24)
[2018-05-01] MEDS: CHLORHEXIDINE GLUCONATE 0.12% 15ML CUP MM SCH ×2 (10:24→21:52)
[2018-05-01] MEDS ORDERED: PT OWN MED DRAWER 7, Y5N ONE ×2 (20:47→21:56)
[2018-05-01] MEDS: traZODone HCL 100 MG TABLET (FP) PO SCH (21:52)
[2018-05-01] MEDS: THIAMINE HCL 100 MG TABLET (FP) PO SCH (21:52)
[2018-05-02] MEDS ORDERED: METHADONE HCL 10 MG TABLET ONE (05:29)
[2018-05-02] MEDS ORDERED: METHADONE HCL 40 MG DISPERSABLE TABLET ONE (05:29)
[2018-05-02] MEDS ORDERED: METHADONE HCL 5 MG TABLET ONE (05:30)
[2018-05-02] MEDS: METHADONE 40 MG, METHADONE 20 MG, METHADONE 5 MG PO SCH (06:10)
[2018-05-02] MEDS: NICOTINE 14 MG/24 HOURS TOPICAL PATCH TD SCH (10:22)
[2018-05-02] MEDS: PANTOPRAZOLE 20 MG TABLET (FP) PO SCH (10:22)
[2018-05-02] MEDS: CHLORHEXIDINE GLUCONATE 0.12% 15ML CUP MM SCH ×2 (10:22→21:53)
[2018-05-02] MEDS: PRENATAL VITAMINS W/ FOLIC ACID TABLET (FP) PO SCH (10:22)
[2018-05-02] MEDS ORDERED: PT OWN MED DRAWER 7, Y5N ONE (19:10)
[2018-05-02] MEDS: THIAMINE HCL 100 MG TABLET (FP) PO SCH (21:53)
[2018-05-02] MEDS: traZODone HCL 100 MG TABLET (FP) PO SCH (21:53)
[2018-05-02] MEDS: MELATONIN 5 MG TABLETS PO PRN (21:54)
[2018-05-03] MEDS ORDERED: METHADONE HCL 10 MG TABLET ONE (02:44)
[2018-05-03] MEDS ORDERED: METHADONE HCL 40 MG DISPERSABLE TABLET ONE (02:44)
[2018-05-03] MEDS ORDERED: METHADONE HCL 5 MG TABLET ONE (02:44)
[2018-05-03] MEDS: METHADONE 40 MG, METHADONE 20 MG, METHADONE 5 MG PO SCH (06:22)
[2018-05-03] MEDS: PRENATAL VITAMINS W/ FOLIC ACID TABLET (FP) PO SCH (10:05)
[2018-05-03] MEDS: CHLORHEXIDINE GLUCONATE 0.12% 15ML CUP MM SCH ×2 (10:05→21:54)
[2018-05-03] MEDS: PANTOPRAZOLE 20 MG TABLET (FP) PO SCH (10:05)
[2018-05-03] MEDS: NICOTINE 14 MG/24 HOURS TOPICAL PATCH TD SCH (10:05)
[2018-05-03] MEDS: MELATONIN 5 MG TABLETS PO PRN (21:53)
[2018-05-03] MEDS: traZODone HCL 100 MG TABLET (FP) PO SCH (21:53)
[2018-05-03] MEDS: THIAMINE HCL 100 MG TABLET (FP) PO SCH (21:53)
[2018-05-03] MEDS ORDERED: PT OWN MED DRAWER 7, Y5N ONE (21:54)
[2018-05-04] MEDS ORDERED: METHADONE HCL 10 MG TABLET ONE (05:34)
[2018-05-04] MEDS ORDERED: METHADONE HCL 40 MG DISPERSABLE TABLET ONE (05:35)
[2018-05-04] MEDS ORDERED: METHADONE HCL 5 MG TABLET ONE (05:35)
[2018-05-04] MEDS: METHADONE 40 MG, METHADONE 20 MG, METHADONE 5 MG PO SCH (06:28)
[2018-05-04] MEDS: NICOTINE 14 MG/24 HOURS TOPICAL PATCH TD SCH (10:35)
[2018-05-04] MEDS: CHLORHEXIDINE GLUCONATE 0.12% 15ML CUP MM SCH ×2 (10:35→21:43)
[2018-05-04] MEDS: PANTOPRAZOLE 20 MG TABLET (FP) PO SCH (10:35)
[2018-05-04] MEDS: PRENATAL VITAMINS W/ FOLIC ACID TABLET (FP) PO SCH (10:35)
[2018-05-04] MEDS ORDERED: PT OWN MED DRAWER 7, Y5N ONE (16:16)
[2018-05-04] MEDS: traZODone HCL 100 MG TABLET (FP) PO SCH (21:42)
[2018-05-04] MEDS: THIAMINE HCL 100 MG TABLET (FP) PO SCH (21:42)
[2018-05-04] MEDS: MELATONIN 5 MG TABLETS PO PRN (21:43)
[2018-05-05] MEDS ORDERED: METHADONE HCL 40 MG DISPERSABLE TABLET ONE (05:33)
[2018-05-05] MEDS ORDERED: METHADONE HCL 10 MG TABLET ONE (05:33)
[2018-05-05] MEDS ORDERED: METHADONE HCL 5 MG TABLET ONE (05:34)
[2018-05-05] MEDS: METHADONE 40 MG, METHADONE 20 MG, METHADONE 5 MG PO SCH (06:26)
[2018-05-05] MEDS ORDERED: PT OWN MED DRAWER 7, Y5N ONE (09:25)
[2018-05-05] MEDS: NICOTINE 14 MG/24 HOURS TOPICAL PATCH TD SCH (11:02)
[2018-05-05] MEDS: PANTOPRAZOLE 20 MG TABLET (FP) PO SCH (11:03)
[2018-05-05] MEDS: PRENATAL VITAMINS W/ FOLIC ACID TABLET (FP) PO SCH (11:03)
[2018-05-05] MEDS: CHLORHEXIDINE GLUCONATE 0.12% 15ML CUP MM SCH ×2 (11:03→21:58)
[2018-05-05] MEDS: THIAMINE HCL 100 MG TABLET (FP) PO SCH (21:57)
[2018-05-05] MEDS: traZODone HCL 100 MG TABLET (FP) PO SCH (21:57)
[2018-05-05] MEDS: MELATONIN 5 MG TABLETS PO PRN (21:57)
[2018-05-05] MEDS: TOLNAFTATE 1% CREAM 15 GM TUBE TP SCH (22:00)
[2018-05-06] MEDS: METHADONE 40 MG, METHADONE 20 MG, METHADONE 5 MG PO SCH (06:31)
[2018-05-06] MEDS ORDERED: METHADONE HCL 5 MG TABLET ONE (06:31)
[2018-05-06] MEDS ORDERED: METHADONE HCL 10 MG TABLET ONE (06:31)
[2018-05-06] MEDS ORDERED: METHADONE HCL 40 MG DISPERSABLE TABLET ONE (06:31)
[2018-05-06] MEDS: NICOTINE 14 MG/24 HOURS TOPICAL PATCH TD SCH (10:44)
[2018-05-06] MEDS: PANTOPRAZOLE 20 MG TABLET (FP) PO SCH (10:45)
[2018-05-06] MEDS: CHLORHEXIDINE GLUCONATE 0.12% 15ML CUP MM SCH ×2 (10:45→21:47)
[2018-05-06] MEDS: PRENATAL VITAMINS W/ FOLIC ACID TABLET (FP) PO SCH (10:45)
[2018-05-06] MEDS: TOLNAFTATE 1% CREAM 15 GM TUBE TP SCH ×2 (10:45→21:48)
[2018-05-06] MEDS: MELATONIN 5 MG TABLETS PO PRN (21:46)
[2018-05-06] MEDS: traZODone HCL 100 MG TABLET (FP) PO SCH (21:46)
[2018-05-06] MEDS: THIAMINE HCL 100 MG TABLET (FP) PO SCH (21:46)
[2018-05-06] MEDS ORDERED: PT OWN MED DRAWER 7, Y5N ONE (21:47)
[2018-05-07] MEDS ORDERED: METHADONE HCL 10 MG TABLET ONE (05:34)
[2018-05-07] MEDS ORDERED: METHADONE HCL 40 MG DISPERSABLE TABLET ONE (05:34)
[2018-05-07] MEDS ORDERED: METHADONE HCL 5 MG TABLET ONE (05:34)
[2018-05-07] MEDS: METHADONE 40 MG, METHADONE 20 MG, METHADONE 5 MG PO SCH (06:32)
[2018-05-07] MEDS: PANTOPRAZOLE 20 MG TABLET (FP) PO SCH (10:29)
[2018-05-07] MEDS: PRENATAL VITAMINS W/ FOLIC ACID TABLET (FP) PO SCH (10:29)
[2018-05-07] MEDS: CHLORHEXIDINE GLUCONATE 0.12% 15ML CUP MM SCH ×2 (10:29→22:00)
[2018-05-07] MEDS: NICOTINE 14 MG/24 HOURS TOPICAL PATCH TD SCH (10:29)
[2018-05-07] MEDS: TOLNAFTATE 1% CREAM 15 GM TUBE TP SCH ×2 (10:30→21:59)
[2018-05-07] MEDS ORDERED: PT OWN MED DRAWER 7, Y5N ONE (10:34)
[2018-05-07] MEDS: traZODone HCL 100 MG TABLET (FP) PO SCH (21:59)
[2018-05-07] MEDS: THIAMINE HCL 100 MG TABLET (FP) PO SCH (21:59)
[2018-05-07] MEDS: MELATONIN 5 MG TABLETS PO PRN (21:59)
[2018-05-08] MEDS ORDERED: METHADONE HCL 10 MG TABLET ONE (03:15)
[2018-05-08] MEDS ORDERED: METHADONE HCL 40 MG DISPERSABLE TABLET ONE (03:15)
[2018-05-08] MEDS ORDERED: METHADONE HCL 5 MG TABLET ONE (03:15)
[2018-05-08] MEDS: METHADONE 40 MG, METHADONE 20 MG, METHADONE 5 MG PO SCH (06:23)
[2018-05-08] MEDS: PANTOPRAZOLE 20 MG TABLET (FP) PO SCH (10:50)
[2018-05-08] MEDS: TOLNAFTATE 1% CREAM 15 GM TUBE TP SCH ×2 (10:50→21:52)
[2018-05-08] MEDS: PRENATAL VITAMINS W/ FOLIC ACID TABLET (FP) PO SCH (10:50)
[2018-05-08] MEDS: CHLORHEXIDINE GLUCONATE 0.12% 15ML CUP MM SCH ×2 (10:51→21:54)
[2018-05-08] MEDS: NICOTINE 14 MG/24 HOURS TOPICAL PATCH TD SCH (10:51)
[2018-05-08] MEDS ORDERED: PT OWN MED DRAWER 7, Y5N ONE (20:58)
[2018-05-08] MEDS: THIAMINE HCL 100 MG TABLET (FP) PO SCH (21:53)
[2018-05-08] MEDS: traZODone HCL 100 MG TABLET (FP) PO SCH (21:53)
[2018-05-08] MEDS: MELATONIN 5 MG TABLETS PO PRN (21:54)
[2018-05-09] MEDS ORDERED: METHADONE HCL 40 MG DISPERSABLE TABLET ONE (05:56)
[2018-05-09] MEDS ORDERED: METHADONE HCL 10 MG TABLET ONE (05:56)
[2018-05-09] MEDS ORDERED: METHADONE HCL 5 MG TABLET ONE (05:56)
[2018-05-09] MEDS: METHADONE 40 MG, METHADONE 20 MG, METHADONE 5 MG PO SCH (05:59)
[2018-05-09] MEDS ORDERED: PT OWN MED DRAWER 7, Y5N ONE ×2 (09:00→20:02)
[2018-05-09] MEDS: PRENATAL VITAMINS W/ FOLIC ACID TABLET (FP) PO SCH (09:58)
[2018-05-09] MEDS: CHLORHEXIDINE GLUCONATE 0.12% 15ML CUP MM SCH ×2 (09:58→21:56)
[2018-05-09] MEDS: NICOTINE 14 MG/24 HOURS TOPICAL PATCH TD SCH (09:58)
[2018-05-09] MEDS: PANTOPRAZOLE 20 MG TABLET (FP) PO SCH (09:58)
[2018-05-09] MEDS: TOLNAFTATE 1% CREAM 15 GM TUBE TP SCH ×2 (10:00→21:55)
[2018-05-09] MEDS: traZODone HCL 100 MG TABLET (FP) PO SCH (21:56)
[2018-05-09] MEDS: THIAMINE HCL 100 MG TABLET (FP) PO SCH (21:56)
[2018-05-09] MEDS: MELATONIN 5 MG TABLETS PO PRN (21:57)
[2018-05-10] MEDS ORDERED: METHADONE HCL 10 MG TABLET ONE (05:31)
[2018-05-10] MEDS ORDERED: METHADONE HCL 40 MG DISPERSABLE TABLET ONE (05:31)
[2018-05-10] MEDS ORDERED: METHADONE HCL 5 MG TABLET ONE (05:31)
[2018-05-10] MEDS: METHADONE 40 MG, METHADONE 20 MG, METHADONE 5 MG PO SCH (06:23)
[2018-05-10] MEDS: PRENATAL VITAMINS W/ FOLIC ACID TABLET (FP) PO SCH (10:54)
[2018-05-10] MEDS: NICOTINE 14 MG/24 HOURS TOPICAL PATCH TD SCH (10:54)
[2018-05-10] MEDS: CHLORHEXIDINE GLUCONATE 0.12% 15ML CUP MM SCH ×2 (10:54→21:52)
[2018-05-10] MEDS: PANTOPRAZOLE 20 MG TABLET (FP) PO SCH (10:54)
[2018-05-10] MEDS: TOLNAFTATE 1% CREAM 15 GM TUBE TP SCH ×2 (10:55→21:51)
[2018-05-10] MEDS: traZODone HCL 100 MG TABLET (FP) PO SCH (21:50)
[2018-05-10] MEDS: THIAMINE HCL 100 MG TABLET (FP) PO SCH (21:50)
[2018-05-10] MEDS: MELATONIN 5 MG TABLETS PO PRN (21:50)
[2018-05-11] MEDS ORDERED: METHADONE HCL 10 MG TABLET ONE (05:23)
[2018-05-11] MEDS ORDERED: METHADONE HCL 40 MG DISPERSABLE TABLET ONE (05:23)
[2018-05-11] MEDS ORDERED: METHADONE HCL 5 MG TABLET ONE (05:23)
[2018-05-11] MEDS: METHADONE 40 MG, METHADONE 20 MG, METHADONE 5 MG PO SCH (06:30)
[2018-05-11] MEDS: PRENATAL VITAMINS W/ FOLIC ACID TABLET (FP) PO SCH (10:20)
[2018-05-11] MEDS: NICOTINE 14 MG/24 HOURS TOPICAL PATCH TD SCH (10:20)
[2018-05-11] MEDS: CHLORHEXIDINE GLUCONATE 0.12% 15ML CUP MM SCH ×2 (10:20→21:53)
[2018-05-11] MEDS: PANTOPRAZOLE 20 MG TABLET (FP) PO SCH (10:21)
[2018-05-11] MEDS: TOLNAFTATE 1% CREAM 15 GM TUBE TP SCH ×2 (10:21→21:53)
--- NOTE | 2018-05-11 15:41 | PN ---
S Progress Note Note: Vital Signs Temperature 97.4 F L 05/11/18 07:02 Pulse Rate 72 05/11/18 07:02 Respiratory Rate 18 05/11/18 07:02 Blood Pressure 127/85 05/11/18 07:02 O2 Sat by Pulse Oximetry (%) c/o of swollen left lymph node. Denies body aches, cough, chills, sore throat. A/P patient Aox3 no distress no pharyngeal erythema mild left cervical posterior adenopathy no adventitious breath sounds Plan: tylenol pRN continue to monitor for worsening symptoms
[2018-05-11] MEDS: MELATONIN 5 MG TABLETS PO PRN (21:53)
[2018-05-11] MEDS: THIAMINE HCL 100 MG TABLET (FP) PO SCH (21:53)
[2018-05-11] MEDS: traZODone HCL 100 MG TABLET (FP) PO SCH (21:53)
[2018-05-12] MEDS ORDERED: METHADONE HCL 5 MG TABLET ONE (02:38)
[2018-05-12] MEDS ORDERED: METHADONE HCL 10 MG TABLET ONE (02:38)
[2018-05-12] MEDS ORDERED: METHADONE HCL 40 MG DISPERSABLE TABLET ONE (02:38)
[2018-05-12] MEDS: METHADONE 40 MG, METHADONE 20 MG, METHADONE 5 MG PO SCH (06:36)
[2018-05-12] MEDS: NICOTINE 14 MG/24 HOURS TOPICAL PATCH TD SCH (11:01)
[2018-05-12] MEDS: CHLORHEXIDINE GLUCONATE 0.12% 15ML CUP MM SCH ×2 (11:01→22:46)
[2018-05-12] MEDS: PRENATAL VITAMINS W/ FOLIC ACID TABLET (FP) PO SCH (11:01)
[2018-05-12] MEDS: PANTOPRAZOLE 20 MG TABLET (FP) PO SCH (11:01)
[2018-05-12] MEDS: TOLNAFTATE 1% CREAM 15 GM TUBE TP SCH ×2 (11:01→22:45)
[2018-05-12] MEDS: THIAMINE HCL 100 MG TABLET (FP) PO SCH (22:45)
[2018-05-12] MEDS: traZODone HCL 100 MG TABLET (FP) PO SCH (22:46)
[2018-05-12] MEDS: MELATONIN 5 MG TABLETS PO PRN (22:47)
[2018-05-13] MEDS ORDERED: METHADONE HCL 10 MG TABLET ONE (02:39)
[2018-05-13] MEDS ORDERED: METHADONE HCL 40 MG DISPERSABLE TABLET ONE (02:39)
[2018-05-13] MEDS ORDERED: METHADONE HCL 5 MG TABLET ONE (02:40)
[2018-05-13] MEDS: METHADONE 40 MG, METHADONE 20 MG, METHADONE 5 MG PO SCH (06:42)
[2018-05-13] MEDS: NICOTINE 14 MG/24 HOURS TOPICAL PATCH TD SCH (10:27)
[2018-05-13] MEDS: CHLORHEXIDINE GLUCONATE 0.12% 15ML CUP MM SCH ×2 (10:27→22:29)
[2018-05-13] MEDS: PANTOPRAZOLE 20 MG TABLET (FP) PO SCH (10:27)
[2018-05-13] MEDS: TOLNAFTATE 1% CREAM 15 GM TUBE TP SCH ×2 (10:27→22:30)
[2018-05-13] MEDS: PRENATAL VITAMINS W/ FOLIC ACID TABLET (FP) PO SCH (10:27)
[2018-05-13] MEDS ORDERED: PT OWN MED DRAWER 7, Y5N ONE (10:37)
[2018-05-13] MEDS: traZODone HCL 100 MG TABLET (FP) PO SCH (22:27)
[2018-05-13] MEDS: THIAMINE HCL 100 MG TABLET (FP) PO SCH (22:27)
[2018-05-13] MEDS: MELATONIN 5 MG TABLETS PO PRN (22:28)
[2018-05-14] MEDS ORDERED: METHADONE HCL 40 MG DISPERSABLE TABLET ONE (05:27)
[2018-05-14] MEDS ORDERED: METHADONE HCL 10 MG TABLET ONE (05:27)
[2018-05-14] MEDS ORDERED: METHADONE HCL 5 MG TABLET ONE (05:27)
[2018-05-14] MEDS: METHADONE 40 MG, METHADONE 20 MG, METHADONE 5 MG PO SCH (06:42)
[2018-05-14] MEDS: PANTOPRAZOLE 20 MG TABLET (FP) PO SCH (10:42)
[2018-05-14] MEDS: PRENATAL VITAMINS W/ FOLIC ACID TABLET (FP) PO SCH (10:42)
[2018-05-14] MEDS: NICOTINE 14 MG/24 HOURS TOPICAL PATCH TD SCH (10:42)
[2018-05-14] MEDS: CHLORHEXIDINE GLUCONATE 0.12% 15ML CUP MM SCH ×2 (10:42→22:33)
[2018-05-14] MEDS: TOLNAFTATE 1% CREAM 15 GM TUBE TP SCH ×2 (10:42→22:05)
[2018-05-14] MEDS: IBUPROFEN 400 MG TABLET (FP) PO PRN (17:01)
[2018-05-14] MEDS ORDERED: PT OWN MED DRAWER 7, Y5N ONE (19:04)
[2018-05-14] MEDS: traZODone HCL 100 MG TABLET (FP) PO SCH (22:06)
[2018-05-14] MEDS: THIAMINE HCL 100 MG TABLET (FP) PO SCH (22:06)
[2018-05-14] MEDS: MELATONIN 5 MG TABLETS PO PRN (22:06)
[2018-05-15] MEDS ORDERED: METHADONE HCL 10 MG TABLET ONE (05:31)
[2018-05-15] MEDS ORDERED: METHADONE HCL 40 MG DISPERSABLE TABLET ONE (05:32)
[2018-05-15] MEDS ORDERED: METHADONE HCL 5 MG TABLET ONE (05:32)
[2018-05-15] MEDS: METHADONE 40 MG, METHADONE 20 MG, METHADONE 5 MG PO SCH (06:26)
[2018-05-15] MEDS: TOLNAFTATE 1% CREAM 15 GM TUBE TP SCH ×2 (09:48→22:18)
[2018-05-15] MEDS: CHLORHEXIDINE GLUCONATE 0.12% 15ML CUP MM SCH ×2 (09:49→22:18)
[2018-05-15] MEDS: NICOTINE 14 MG/24 HOURS TOPICAL PATCH TD SCH (09:49)
[2018-05-15] MEDS: PANTOPRAZOLE 20 MG TABLET (FP) PO SCH (09:49)
[2018-05-15] MEDS ORDERED: PT OWN MED DRAWER 7, Y5N ONE ×2 (09:49→22:18)
[2018-05-15] MEDS: PRENATAL VITAMINS W/ FOLIC ACID TABLET (FP) PO SCH (09:49)
[2018-05-15] MEDS: IBUPROFEN 400 MG TABLET (FP) PO PRN (13:56)
[2018-05-15] MEDS: THIAMINE HCL 100 MG TABLET (FP) PO SCH (22:16)
[2018-05-15] MEDS: traZODone HCL 100 MG TABLET (FP) PO SCH (22:16)
[2018-05-15] MEDS: MELATONIN 5 MG TABLETS PO PRN (22:16)
[2018-05-16] MEDS ORDERED: METHADONE HCL 10 MG TABLET ONE (05:38)
[2018-05-16] MEDS ORDERED: METHADONE HCL 5 MG TABLET ONE (05:38)
[2018-05-16] MEDS ORDERED: METHADONE HCL 40 MG DISPERSABLE TABLET ONE (05:38)
[2018-05-16] MEDS: METHADONE 40 MG, METHADONE 20 MG, METHADONE 5 MG PO SCH (06:30)
[2018-05-16] MEDS: PRENATAL VITAMINS W/ FOLIC ACID TABLET (FP) PO SCH (10:19)
[2018-05-16] MEDS: TOLNAFTATE 1% CREAM 15 GM TUBE TP SCH ×2 (10:20→22:29)
[2018-05-16] MEDS: PANTOPRAZOLE 20 MG TABLET (FP) PO SCH (10:20)
[2018-05-16] MEDS: CHLORHEXIDINE GLUCONATE 0.12% 15ML CUP MM SCH ×2 (10:21→22:28)
[2018-05-16] MEDS: NICOTINE 14 MG/24 HOURS TOPICAL PATCH TD SCH (10:45)
[2018-05-16] MEDS ORDERED: PT OWN MED DRAWER 7, Y5N ONE (20:23)
[2018-05-16] MEDS: traZODone HCL 100 MG TABLET (FP) PO SCH (22:28)
[2018-05-16] MEDS: THIAMINE HCL 100 MG TABLET (FP) PO SCH (22:28)
[2018-05-16] MEDS: MELATONIN 5 MG TABLETS PO PRN (22:30)
[2018-05-17] MEDS ORDERED: METHADONE HCL 40 MG DISPERSABLE TABLET ONE (03:09)
[2018-05-17] MEDS ORDERED: METHADONE HCL 10 MG TABLET ONE (03:09)
[2018-05-17] MEDS ORDERED: METHADONE HCL 5 MG TABLET ONE (03:10)
[2018-05-17] MEDS: METHADONE 40 MG, METHADONE 20 MG, METHADONE 5 MG PO SCH (06:29)
[2018-05-17] MEDS: IBUPROFEN 400 MG TABLET (FP) PO PRN ×2 (06:32→22:01)
[2018-05-17] MEDS ORDERED: PT OWN MED DRAWER 7, Y5N ONE ×3 (08:55→20:05)
[2018-05-17] MEDS: NICOTINE 14 MG/24 HOURS TOPICAL PATCH TD SCH (10:21)
[2018-05-17] MEDS: CHLORHEXIDINE GLUCONATE 0.12% 15ML CUP MM SCH ×2 (10:22→22:00)
[2018-05-17] MEDS: PRENATAL VITAMINS W/ FOLIC ACID TABLET (FP) PO SCH (10:22)
[2018-05-17] MEDS: PANTOPRAZOLE 20 MG TABLET (FP) PO SCH (10:22)
[2018-05-17] MEDS: TOLNAFTATE 1% CREAM 15 GM TUBE TP SCH ×2 (10:23→22:01)
--- NOTE | 2018-05-17 15:13 | PN ---
S Progress Note Note: Vital Signs Temperature 98.0 F 05/17/18 07:21 Pulse Rate 64 05/17/18 07:21 Respiratory Rate 18 05/17/18 07:21 Blood Pressure 107/63 05/17/18 07:21 O2 Sat by Pulse Oximetry (%) Patient requested workup for old injury on left leg. Patient denies any symptoms at this time Patient Aox3 no distress skin intact Full ROM ambulating in the unit without difficulty Patient to follow up with primary medical provider upon discharge, verbalizes understanding
[2018-05-17] MEDS: THIAMINE HCL 100 MG TABLET (FP) PO SCH (22:00)
[2018-05-17] MEDS: traZODone HCL 100 MG TABLET (FP) PO SCH (22:00)
[2018-05-18] MEDS ORDERED: METHADONE HCL 40 MG DISPERSABLE TABLET ONE (05:36)
[2018-05-18] MEDS ORDERED: METHADONE HCL 5 MG TABLET ONE (05:36)
[2018-05-18] MEDS ORDERED: METHADONE HCL 10 MG TABLET ONE (05:36)
[2018-05-18] MEDS: IBUPROFEN 400 MG TABLET (FP) PO PRN (06:31)
[2018-05-18] MEDS: METHADONE 40 MG, METHADONE 20 MG, METHADONE 5 MG PO SCH (06:32)
[2018-05-18] MEDS ORDERED: PT OWN MED DRAWER 7, Y5N ONE ×3 (09:03→22:18)
[2018-05-18] MEDS: NICOTINE 14 MG/24 HOURS TOPICAL PATCH TD SCH (10:16)
[2018-05-18] MEDS: PRENATAL VITAMINS W/ FOLIC ACID TABLET (FP) PO SCH (10:16)
[2018-05-18] MEDS: PANTOPRAZOLE 20 MG TABLET (FP) PO SCH (10:16)
[2018-05-18] MEDS: CHLORHEXIDINE GLUCONATE 0.12% 15ML CUP MM SCH ×2 (10:16→22:04)
[2018-05-18] MEDS: TOLNAFTATE 1% CREAM 15 GM TUBE TP SCH ×2 (10:16→22:05)
[2018-05-18] MEDS: MELATONIN 5 MG TABLETS PO PRN (22:03)
[2018-05-18] MEDS: THIAMINE HCL 100 MG TABLET (FP) PO SCH (22:03)
[2018-05-18] MEDS: traZODone HCL 100 MG TABLET (FP) PO SCH (22:03)
[2018-05-19] MEDS ORDERED: METHADONE HCL 10 MG TABLET ONE (05:27)
[2018-05-19] MEDS ORDERED: METHADONE HCL 5 MG TABLET ONE (05:28)
[2018-05-19] MEDS ORDERED: METHADONE HCL 40 MG DISPERSABLE TABLET ONE (05:28)
[2018-05-19] MEDS: IBUPROFEN 400 MG TABLET (FP) PO PRN (06:15)
[2018-05-19] MEDS: MAG HYDROX/AL HYDROX/SIMETH 30 ML UNIT-DOSE CUP PO PRN ×2 (06:16→16:06)
[2018-05-19] MEDS: METHADONE 40 MG, METHADONE 20 MG, METHADONE 5 MG PO SCH (06:16)
[2018-05-19] MEDS ORDERED: PT OWN MED DRAWER 7, Y5N ONE ×2 (10:11→21:53)
[2018-05-19] MEDS: CHLORHEXIDINE GLUCONATE 0.12% 15ML CUP MM SCH ×2 (10:13→21:53)
[2018-05-19] MEDS: PANTOPRAZOLE 20 MG TABLET (FP) PO SCH (10:13)
[2018-05-19] MEDS: TOLNAFTATE 1% CREAM 15 GM TUBE TP SCH ×2 (10:13→21:53)
[2018-05-19] MEDS: PRENATAL VITAMINS W/ FOLIC ACID TABLET (FP) PO SCH (10:13)
[2018-05-19] MEDS: NICOTINE 14 MG/24 HOURS TOPICAL PATCH TD SCH (10:13)
[2018-05-19] MEDS: THIAMINE HCL 100 MG TABLET (FP) PO SCH (21:52)
[2018-05-19] MEDS: traZODone HCL 100 MG TABLET (FP) PO SCH (21:52)
[2018-05-19] MEDS: MELATONIN 5 MG TABLETS PO PRN (21:52)
[2018-05-20] MEDS ORDERED: METHADONE HCL 10 MG TABLET ONE (05:39)
[2018-05-20] MEDS ORDERED: METHADONE HCL 40 MG DISPERSABLE TABLET ONE (05:40)
[2018-05-20] MEDS ORDERED: METHADONE HCL 5 MG TABLET ONE (05:40)
[2018-05-20] MEDS: IBUPROFEN 400 MG TABLET (FP) PO PRN ×2 (06:31→22:30)
[2018-05-20] MEDS: METHADONE 40 MG, METHADONE 20 MG, METHADONE 5 MG PO SCH (06:31)
[2018-05-20] MEDS: PRENATAL VITAMINS W/ FOLIC ACID TABLET (FP) PO SCH (09:59)
[2018-05-20] MEDS: NICOTINE 14 MG/24 HOURS TOPICAL PATCH TD SCH (09:59)
[2018-05-20] MEDS: CHLORHEXIDINE GLUCONATE 0.12% 15ML CUP MM SCH ×2 (09:59→22:30)
[2018-05-20] MEDS: TOLNAFTATE 1% CREAM 15 GM TUBE TP SCH ×2 (10:00→22:32)
[2018-05-20] MEDS: PANTOPRAZOLE 20 MG TABLET (FP) PO SCH (10:00)
[2018-05-20] MEDS ORDERED: PT OWN MED DRAWER 7, Y5N ONE (19:45)
[2018-05-20] MEDS: MELATONIN 5 MG TABLETS PO PRN (22:29)
[2018-05-20] MEDS: THIAMINE HCL 100 MG TABLET (FP) PO SCH (22:30)
[2018-05-20] MEDS: traZODone HCL 100 MG TABLET (FP) PO SCH (22:30)
[2018-05-21] MEDS ORDERED: METHADONE HCL 40 MG DISPERSABLE TABLET ONE (05:37)
[2018-05-21] MEDS ORDERED: METHADONE HCL 5 MG TABLET ONE (05:37)
[2018-05-21] MEDS ORDERED: METHADONE HCL 10 MG TABLET ONE (05:37)
[2018-05-21] MEDS: IBUPROFEN 400 MG TABLET (FP) PO PRN ×2 (06:20→22:34)
[2018-05-21] MEDS: METHADONE 40 MG, METHADONE 20 MG, METHADONE 5 MG PO SCH (06:21)
[2018-05-21] MEDS: PRENATAL VITAMINS W/ FOLIC ACID TABLET (FP) PO SCH (10:09)
[2018-05-21] MEDS: NICOTINE 14 MG/24 HOURS TOPICAL PATCH TD SCH (10:09)
[2018-05-21] MEDS: CHLORHEXIDINE GLUCONATE 0.12% 15ML CUP MM SCH ×2 (10:09→22:45)
[2018-05-21] MEDS: TOLNAFTATE 1% CREAM 15 GM TUBE TP SCH ×2 (10:21→22:35)
[2018-05-21] MEDS: PANTOPRAZOLE 20 MG TABLET (FP) PO SCH (10:21)
[2018-05-21] MEDS: MELATONIN 5 MG TABLETS PO PRN (22:34)
[2018-05-21] MEDS: traZODone HCL 100 MG TABLET (FP) PO SCH (22:34)
[2018-05-21] MEDS: THIAMINE HCL 100 MG TABLET (FP) PO SCH (22:45)
[2018-05-22] MEDS ORDERED: METHADONE HCL 5 MG TABLET ONE (02:48)
[2018-05-22] MEDS ORDERED: METHADONE HCL 40 MG DISPERSABLE TABLET ONE (02:48)
[2018-05-22] MEDS ORDERED: METHADONE HCL 10 MG TABLET ONE (02:48)
[2018-05-22] MEDS: METHADONE 40 MG, METHADONE 20 MG, METHADONE 5 MG PO SCH (06:22)
[2018-05-22] MEDS ORDERED: METHADONE 40 MG, METHADONE 20 MG, METHADONE 5 MG PO SCH (07:03)
[2018-05-22] MEDS ORDERED: PT OWN MED DRAWER 7, Y5N ONE ×2 (08:57→20:09)
[2018-05-22] MEDS: TOLNAFTATE 1% CREAM 15 GM TUBE TP SCH ×2 (09:42→22:09)
[2018-05-22] MEDS: PANTOPRAZOLE 20 MG TABLET (FP) PO SCH (09:42)
[2018-05-22] MEDS: CHLORHEXIDINE GLUCONATE 0.12% 15ML CUP MM SCH ×2 (09:42→22:10)
[2018-05-22] MEDS: NICOTINE 14 MG/24 HOURS TOPICAL PATCH TD SCH (09:42)
[2018-05-22] MEDS: PRENATAL VITAMINS W/ FOLIC ACID TABLET (FP) PO SCH (09:42)
[2018-05-22] MEDS: IBUPROFEN 400 MG TABLET (FP) PO PRN ×2 (09:43→22:11)
[2018-05-22] MEDS: THIAMINE HCL 100 MG TABLET (FP) PO SCH (22:09)
[2018-05-22] MEDS: traZODone HCL 100 MG TABLET (FP) PO SCH (22:09)
[2018-05-22] MEDS: MELATONIN 5 MG TABLETS PO PRN (22:11)
[2018-05-23] MEDS ORDERED: METHADONE HCL 5 MG TABLET ONE (05:48)
[2018-05-23] MEDS ORDERED: METHADONE HCL 40 MG DISPERSABLE TABLET ONE (05:48)
[2018-05-23] MEDS ORDERED: METHADONE HCL 10 MG TABLET ONE (05:48)
[2018-05-23] MEDS: METHADONE 40 MG, METHADONE 20 MG, METHADONE 5 MG PO SCH (06:24)
[2018-05-23] MEDS ORDERED: PT OWN MED DRAWER 7, Y5N ONE ×2 (08:54→09:50)
[2018-05-23] MEDS: TOLNAFTATE 1% CREAM 15 GM TUBE TP SCH ×2 (09:49→22:33)
[2018-05-23] MEDS: PRENATAL VITAMINS W/ FOLIC ACID TABLET (FP) PO SCH (09:49)
[2018-05-23] MEDS: PANTOPRAZOLE 20 MG TABLET (FP) PO SCH (09:51)
[2018-05-23] MEDS: NICOTINE 14 MG/24 HOURS TOPICAL PATCH TD SCH (09:51)
[2018-05-23] MEDS: CHLORHEXIDINE GLUCONATE 0.12% 15ML CUP MM SCH ×2 (09:51→22:33)
[2018-05-23] MEDS: IBUPROFEN 400 MG TABLET (FP) PO PRN (14:14)
[2018-05-23] MEDS: MELATONIN 5 MG TABLETS PO PRN (22:31)
[2018-05-23] MEDS: traZODone HCL 100 MG TABLET (FP) PO SCH (22:32)
[2018-05-23] MEDS: THIAMINE HCL 100 MG TABLET (FP) PO SCH (22:33)
[2018-05-24] MEDS ORDERED: METHADONE HCL 10 MG TABLET ONE (05:38)
[2018-05-24] MEDS ORDERED: METHADONE HCL 40 MG DISPERSABLE TABLET ONE (05:39)
[2018-05-24] MEDS ORDERED: METHADONE HCL 5 MG TABLET ONE (05:39)
[2018-05-24] MEDS: IBUPROFEN 400 MG TABLET (FP) PO PRN (06:25)
[2018-05-24] MEDS: METHADONE 40 MG, METHADONE 20 MG, METHADONE 5 MG PO SCH (06:26)
[2018-05-24] MEDS ORDERED: PT OWN MED DRAWER 7, Y5N ONE (09:30)
[2018-05-24] MEDS: NICOTINE 14 MG/24 HOURS TOPICAL PATCH TD SCH (10:45)
[2018-05-24] MEDS: TOLNAFTATE 1% CREAM 15 GM TUBE TP SCH ×2 (10:46→21:23)
[2018-05-24] MEDS: CHLORHEXIDINE GLUCONATE 0.12% 15ML CUP MM SCH ×2 (10:46→21:23)
[2018-05-24] MEDS: PANTOPRAZOLE 20 MG TABLET (FP) PO SCH (10:46)
[2018-05-24] MEDS: PRENATAL VITAMINS W/ FOLIC ACID TABLET (FP) PO SCH (10:46)
[2018-05-24] MEDS: THIAMINE HCL 100 MG TABLET (FP) PO SCH (21:22)
[2018-05-24] MEDS: MELATONIN 5 MG TABLETS PO PRN (21:22)
[2018-05-24] MEDS: traZODone HCL 100 MG TABLET (FP) PO SCH (21:23)
[2018-05-25] MEDS ORDERED: METHADONE HCL 5 MG TABLET ONE (05:33)
[2018-05-25] MEDS ORDERED: METHADONE HCL 10 MG TABLET ONE (05:33)
[2018-05-25] MEDS ORDERED: METHADONE HCL 40 MG DISPERSABLE TABLET ONE (05:33)
[2018-05-25] MEDS: METHADONE 40 MG, METHADONE 20 MG, METHADONE 5 MG PO SCH (06:27)
[2018-05-25] MEDS: NICOTINE 14 MG/24 HOURS TOPICAL PATCH TD SCH (10:17)
[2018-05-25] MEDS: PANTOPRAZOLE 20 MG TABLET (FP) PO SCH (10:17)
[2018-05-25] MEDS: CHLORHEXIDINE GLUCONATE 0.12% 15ML CUP MM SCH ×2 (10:17→21:38)
[2018-05-25] MEDS: PRENATAL VITAMINS W/ FOLIC ACID TABLET (FP) PO SCH (10:17)
[2018-05-25] MEDS: TOLNAFTATE 1% CREAM 15 GM TUBE TP SCH ×2 (10:17→21:38)
--- NOTE | 2018-05-25 15:00 | PN ---
Psychiatric Progress Note Vital Signs: Vital Signs Period Temp Pulse Resp BP Sys/Molina Pulse Ox Last 24 Hr 97.5 F 53 16-18 110/70 Date of Session: 05/25/18 Chief Complaint:: "Discharge" HPI: Patient was admitted to [facility] for alcohol dependence. ROS: Significant for GERD and history of treatment for hepatitis C. Current Medications: Active Medications Generic Name Dose Route Start Last Admin Trade Name Freq PRN Reason Stop Dose Admin Acetaminophen 650 mg 04/25/18 13:42 04/29/18 10:08 Tylenol - PO 650 mg Q4H PRN Administration FEVER Al Hydroxide/Mg Hydroxide 30 ml 04/25/18 13:42 05/19/18 16:06 Mylanta Oral Suspension - PO 30 ml Q6H PRN Administration DYSPEPSIA Chlorhexidine Gluconate 15 ml 04/25/18 22:00 05/25/18 10:17 Peridex - MM Not Given BID DOUG Eucalyptus/Menthol/Phenol/Sorbitol 1 each 04/25/18 13:42 Cepastat Lozenge - MM Q4H PRN SORE THROAT Guaifenesin 10 ml 04/25/18 13:42 Robitussin Dm - PO Q6H PRN COUGH Hydroxyzine Pamoate 50 mg 04/25/18 13:42 Vistaril - PO Q4H PRN AGITATION Ibuprofen 400 mg 04/25/18 13:42 05/24/18 06:25 Motrin - PO 400 mg Q6H PRN Administration Pain Level 4-6 Loperamide HCl 4 mg 04/25/18 13:42 Imodium - PO Q6H PRN DIARRHEA Magnesium Citrate 300 ml 04/25/18 13:42 Citroma - PO Q48H PRN CONSTIPATION Magnesium Hydroxide 30 ml 04/25/18 13:42 Milk Of Magnesia - PO DAILY PRN CONSTIPATION Melatonin 5 mg 04/25/18 22:00 05/24/18 21:22 Melatonin PO 5 mg HS PRN Administration INSOMNIA Methadone HCl 40 mg/ Methadone 65 mg 05/23/18 06:00 05/25/18 06:27 HCl 20 mg/ Methadone HCl 5 mg PO 05/30/18 05:59 65 mg DAILY@0600 DOUG Administration Nicotine 14 mg 04/26/18 10:00 05/25/18 10:17 Nicoderm Patch - TD Not Given DAILY DOUG Nicotine Polacrilex 2 mg 07/29/18 13:42 Nicorette Gum - BUC Q2H PRN NICOTINE REPLACEMENT RX Pantoprazole Sodium 20 mg 04/26/18 10:00 05/25/18 10:17 Protonix - PO Not Given DAILY DOUG Multivit/Folic Acid/Iron 1 tab 04/26/18 10:00 05/25/18 10:17 Vitamins (Sjr) - PO Not Given DAILY DOUG Pseudoephedrine/Triprolidine 1 combo 04/25/18 13:42 Actifed - PO TID PRN NASAL CONGESTION Thiamine HCl 100 mg 04/25/18 22:00 05/24/18 21:22 Vitamin B1 - PO 100 mg HS DOUG Administration Tolnaftate 1 applic 05/05/18 22:00 05/25/18 10:17 Tinactin 1% Cream - TP Not Given BID DOUG Trazodone HCl 100 mg 04/26/18 22:00 05/24/18 21:23 Desyrel - PO 100 mg HS DOUG Administration Medication(s) Change(s): No. Current Side Effect: No Lab tests ordered: No Lab tests reviewed: Yes Provider note:: Patient will complete inpatient rehabiliation on 05/26/18. Pt has met his treatment goals and will continue his rehabilitation at [facility] inpatient long-term program. Pt. is able to understand the consequences of his addiction and the need to make positive changes to his lifestyle in order to maintain abstinence. Pt. responded well to trazodone 100mg but states he does not require a prescription. States he will receive the trazodone 100mg while at [facility]. Pt. Pt. is stable for discharge on 05/26/18. Total face to face time:: 35 Mental Status Exam - Mental Status Exam Alert and Oriented to: Time, Place, Person Cognitive Function: Good Patient Appearance: Well Groomed Mood: Hopeful Affect: Appropriate Patient Behavior: Appropriate, Cooperative Speech Pattern: Clear, Appropriate Voice Loudness: Normal Thought Process: Intact, Goal Oriented Thought Disorder: Not Present Hallucinations: Denies Suicidal Ideation: Denies Homicidal Ideation: Denies Insight/Judgement: Good Sleep: Well Appetite: Good Muscle strength/Tone: Normal Gait/Station: Normal Psychiatric Treatment Plan - Problem List (1) Alcohol dependence Current Visit: Yes (2) Sedative hypnotic or anxiolytic dependence Current Visit: Yes (3) Cocaine dependence Current Visit: No Qualifiers: Substance use status: uncomplicated Qualified Code(s): F14.20 - Cocaine dependence, uncomplicated (4) Opioid dependence on agonist therapy Current Visit: No Comment: MMTP : Aditya Rodriguez on methadone 65 mg, last medicated today, dose pending verification. (5) Substance induced mood disorder Current Visit: Yes (6) Substance-induced sleep disorder Current Visit: Yes (7) Nicotine dependence Current Visit: No Qualifiers: Nicotine product type: cigarettes Substance use status: uncomplicated Qualified Code(s): F17.210 - Nicotine dependence, cigarettes, uncomplicated
--- NOTE | 2018-05-25 15:43 | PN ---
[facility] Progress Note Note: Vital Signs Temperature 97.5 F L 05/25/18 07:01 Pulse Rate 53 L 05/25/18 07:01 Respiratory Rate 16 05/25/18 07:01 Blood Pressure 110/70 05/25/18 07:01 O2 Sat by Pulse Oximetry (%) Home Medication List Medication Instructions Recorded Confirmed Type Omeprazole Magnesium [Prilosec Otc] 20 mg PO DAILY 04/21/18 04/25/18 History traZODone HCL [Desyrel -] 100 mg PO HS 04/21/18 04/25/18 History Home Medication List Medication Instructions Recorded Confirmed Type Omeprazole Magnesium [Prilosec Otc] 20 mg PO DAILY 04/21/18 04/25/18 History traZODone HCL [Desyrel -] 100 mg PO HS 04/21/18 04/25/18 History Vital Signs Temperature 97.5 F L 05/25/18 07:01 Pulse Rate 53 L 05/25/18 07:01 Respiratory Rate 16 05/25/18 07:01 Blood Pressure 110/70 05/25/18 07:01 O2 Sat by Pulse Oximetry (%) Patient medically stable. Patient schedule to complete program 05/26/18. Patient to follow up with primary care provider in 1 - 2 weeks. Patient to continue rehabilitation at [facility] inpatient intermediate program.
[2018-05-25] MEDS: traZODone HCL 100 MG TABLET (FP) PO SCH (21:37)
[2018-05-25] MEDS: THIAMINE HCL 100 MG TABLET (FP) PO SCH (21:37)
[2018-05-25] MEDS: MELATONIN 5 MG TABLETS PO PRN (21:38)
[2018-05-26] MEDS ORDERED: METHADONE HCL 10 MG TABLET ONE (05:38)
[2018-05-26] MEDS ORDERED: METHADONE HCL 40 MG DISPERSABLE TABLET ONE (05:38)
[2018-05-26] MEDS ORDERED: METHADONE HCL 5 MG TABLET ONE (05:39)
[2018-05-26] MEDS: METHADONE 40 MG, METHADONE 20 MG, METHADONE 5 MG PO SCH (06:03)
[2018-05-26 07:26] VITALS: BP 117/71; PULSE 56; TEMP 97.6
== END 2018-05-26 06:40 | disposition home or self-care (01) | DRG 772 ==
LOC: YASAS 12:42 → Y3W 12:43
PROVIDERS: ADMIT Psychiatry & Neurology Psychiatry; ATTEND Psychiatry & Neurology Psychiatry
PROC: HZ42ZZZ Group Counseling for Substance Abuse Treatment, Cognitive-Behavioral (ICD-10-PCS; principal; 2018-04-25)
DX: F10.20 Alcohol dependence, uncomplicated (principal); F11.20 Opioid dependence, uncomplicated; F13.20 Sedative, hypnotic or anxiolytic dependence, uncomplicated; F14.20 Cocaine dependence, uncomplicated; F17.210 Nicotine dependence, cigarettes, uncomplicated; F19.24 Other psychoactive substance dependence with psychoactive substance-induced mood disorder; F19.282 Other psychoactive substance dependence with psychoactive substance-induced sleep disorder; K21.9 Gastro-esophageal reflux disease without esophagitis; B18.2 Chronic viral hepatitis C; Z59.0 Homelessness